=== PATIENT | female | born 2000 | race Caucasian/White ===

== ENCOUNTER 2019-12-30 18:11 | Emergency (ER) | payer OTHER ==
[~2019-12-30] VITALS: Ht 170.2 cm; Wt 83.9 kg
[2019-12-30] MEDS ORDERED: MIDAZOLAM 5 MG/5 ML (VERSED) VIAL IJ ONE (18:15)
[2019-12-30] MEDS ORDERED: fentaNYL INJECTION 100 MCG/2 ML AMP INJ ONE (18:15)
[2019-12-30] MEDS ORDERED: SUCCINYLCHOLINE INJ 100 MG/5 ML SYR INJ ONE (18:15)
[2019-12-30] MEDS ORDERED: ETOMIDATE IV SOLN 20 MG/10 ML VIAL IV ONE (18:15)
[2019-12-30] MEDS ORDERED: NS IV 1000 ML 1,000 ML IV SCH ×3 (18:20→22:13)
[2019-12-30 18:37] LABS: BASOPHILS % (AUTO) 0 % (0-10); EOSINOPHILS # (AUTO) 0.2 10^3/uL (0.0-0.3); EOSINOPHILS % (AUTO) 1 % (0-10); HEMATOCRIT 42 % (35-52); HEMOGLOBIN 14.2 G/DL (11.5-16.0); LYMPHOCYTES % (AUTO) 23 % (12-44); MEAN CORPUSCULAR HEMOGLOBIN 28 PG (25-34); MEAN CORPUSCULAR HGB CONC 34 G/DL (32-36); MEAN CORPUSCULAR VOLUME 83 FL (80-99); MEAN PLATELET VOLUME 11.3 FL (7.4-10.4); MONOCYTES # (AUTO) 0.9 X 10^3 (0.0-1.0); MONOCYTES % (AUTO) 7 % (0-12); NEUTROPHILS # (AUTO) 8.9 X 10^3 (1.8-7.8); NEUTROPHILS % (AUTO) 69 % (42-75); PLATELET COUNT 291 10^3/uL (130-400); RED CELL DISTRIBUTION WIDTH 13.7 % (10.0-14.5); WHITE BLOOD COUNT 12.9 10^3/uL (4.3-11.0)
--- NOTE | 2019-12-30 18:50 | ED Psychosocial ---
General Chief Complaint: Overdose Stated Complaint: TOOK 100 BENADRYL Nursing Triage Note: pt to rm 9 with complaint of overdose. pt states she took approx 100 pills of benadryl in attemp to kill herself. states struggles with anxiety/depression. has not attempted to harm herself before (JOSE JUDD) History of Present Illness Date Seen by Provider: Dec 30, 2019 Time Seen by Provider: 18:15 Initial Comments 19 year old female after taking 100 tablets of diphenhydramine 25 mg. She bought this bottle on 12/27/19 to assist with sleeping. She did not take any until 1729 today, after having a disagreement with her mother over her bank account. She took the pills to harm herself, she denies suicidal thoughts at t his time. No history of suicidal ideation, longstanding depression. Takes Lexapro daily Timing/Duration: just prior to arrival Severity: mild Associated Symptoms: insomnia, suicidal ideation (JOSE JUDD) Allergies and Home Medications Allergies Coded Allergies: No Known Drug Allergies (Unverified , 12/30/19) Patient Home Medication List Home Medication List Reviewed: Yes (JOSE JUDD) Review of Systems Constitutional: no symptoms reported, see HPI : No Musculoskeletal: no symptoms reported, see HPI Psychiatric/Neurological: See HPI, Depressed, Emotional Problems (JOSE JUDD) Past Bisdwvi-Oybkjt-Kxjwfw Hx Past Med/Social Hx: Reviewed Nursing Past Med/Soc Hx (JOSE JUDD) Patient Social History Alcohol Use: Occasionally Uses Recreational Drug Use: Yes Drug of Choice: marijuana Smoking Status: Current Someday Smoker Recent Foreign Travel: No Contact w/Someone Who Travel: No Recent Infectious Disease Expo: No Recent Hopitalizations: No (JOSE JUDD) Immunizations Up To Date Tetanus Booster (TDap): Unknown PED Vaccines UTD: Yes (JOSE JUDD) Seasonal Allergies Seasonal Allergies: No (JOSE JUDD) Past Medical History Surgeries: Yes Tonsillectomy Respiratory: No Cardiac: No Neurological: No Genitourinary: No Gastrointestinal: No Musculoskeletal: No Endocrine: No HEENT: No Cancer: No Psychosocial: Yes Anxiety, Depression Integumentary: No (JOSE JUDD) Physical Exam Vital Signs - First Documented 12/30/19 18:11 Pulse 85 Resp 20 B/P (MAP) 147/89 (108) Pulse Ox 100 O2 Delivery Room Air (MERRY MEHTA) Capillary Refill : Less Than 3 Seconds (JOSE JUDD) Height, Weight, BMI Height: '" Weight: lbs. oz. kg; 28.00 BMI Method: General Appearance: WD/WN, no apparent distress HEENT: PERRL/EOMI, normal ENT inspection, TMs normal, pharynx normal Neck: non-tender, full range of motion, supple, normal inspection Respiratory: chest non-tender, lungs clear, normal breath sounds Cardiovascular: normal peripheral pulses, regular rate, rhythm Gastrointestinal: normal bowel sounds, non tender, soft Extremities: normal range of motion, non-tender, normal inspection, normal capillary refill Neurologic/Psychiatric: no motor/sensory deficits, alert, normal mood/affect, oriented x 3 Appearance/Memory: appropriate appearance, appropriate insight, neat, no memory impairment Behavior/Eye Contact: cooperative, normal speech, avoids eye contact Thoughts/Hallucinations: normal thought pattern, no apparent hallucination, auditory hallucinations Skin: normal color, warm/dry Lymphatic: no adenopathy (JOSE JUDD) Procedures/Interventions Reason for Intubation: diphenhydramine overdose, delirium, GCS 8 Date of ETT Placement: Dec 30, 2019 Time of ETT Placement: 21:20 Intubation Method: orotracheal Tube Size: 7.5 Medications: Etomidate (20), Succinylcholine (40) Positive End Tide CO2: Yes Breath Sounds after Intubation: bilateral-equal Intubation Complications: no complications (O2 sats never went below 100%) Post Intubation Xray: Yes good placement of ET tube Explanation of the risks, benefits and alternatives to intubation and mechanical and ventilation were explained to the patient and her mother. Emergently we made consent. Patient was positioned appropriately preoxygenated and 100% sats. We gave her the etomidate followed by succinylcholine appropriately. Using the Bobo vision and a 7.[address] Judd intubated the patient on first attempt with standby support by Dr. Mehta. Some 0.5 ET tube was placed at 24th at the teeth and she had good equal bilateral breath sounds. She fogged the tube on expiration. The capnography paper changed colors on exhalation. Oxygen sats stayed up. She had good color. No breath sounds were heard over the epigastric region. OG tube was placed by nursing staff on first attempt. Patient tolerated procedure well but then began to cough. She opened her eyes briefly so we gave her 5 of Versed and 100 g of fentanyl for perceived pain and discomfort as well as amnesia related to intubation. Propofol was initiated. Vent settings initially for 50 mL total volume at 18 breaths per minute. PEEP 5 and FiO2 of 21%. (MERRY MEHTA) Progress/Results/Core Measures Results/Orders Lab Results Laboratory Tests Test 12/30/19 18:28 12/30/19 18:49 12/30/19 19:15 12/30/19 21:13 Range/Units White Blood Count 12.9 H 4.3-11.0 10^3/uL Red Blood Count 5.06 4.35-5.85 10^6/uL Hemoglobin 14.2 11.5-16.0 G/DL Hematocrit 42 35-52 % Mean Corpuscular Volume 83 80-99 FL Mean Corpuscular Hemoglobin 28 25-34 PG Mean Corpuscular Hemoglobin Concent 34 32-36 G/DL Red Cell Distribution Width 13.7 10.0-14.5 % Platelet Count 291 130-400 10^3/uL Mean Platelet Volume 11.3 H 7.4-10.4 FL Neutrophils (%) (Auto) 69 42-75 % Lymphocytes (%) (Auto) 23 12-44 % Monocytes (%) (Auto) 7 0-12 % Eosinophils (%) (Auto) 1 0-10 % Basophils (%) (Auto) 0 0-10 % Neutrophils # (Auto) 8.9 H 1.8-7.8 X 10^3 Lymphocytes # (Auto) 3.0 1.0-4.0 X 10^3 Monocytes # (Auto) 0.9 0.0-1.0 X 10^3 Eosinophils # (Auto) 0.2 0.0-0.3 10^3/uL Basophils # (Auto) 0.0 0.0-0.1 10^3/uL Sodium Level 138 135-145 MMOL/L Potassium Level 3.7 3.6-5.0 MMOL/L Chloride Level 104 98-107 MMOL/L Carbon Dioxide Level 22 21-32 MMOL/L Anion Gap 12 5-14 MMOL/L Blood Urea Nitrogen 11 7-18 MG/DL Creatinine 1.00 0.60-1.30 MG/DL Estimat Glomerular Filtration Rate > 60 BUN/Creatinine Ratio 11 Glucose Level 103 70-105 MG/DL Calcium Level 9.2 8.5-10.1 MG/DL Corrected Calcium 8.9 8.5-10.1 MG/DL Total Bilirubin 0.8 0.1-1.0 MG/DL Aspartate Amino Transf (AST/SGOT) 18 5-34 U/L Alanine Aminotransferase (ALT/SGPT) 16 0-55 U/L Alkaline Phosphatase 78 40-136 U/L Total Creatine Kinase 65 29-168 U/L Creatine Kinase MB 0.5 <6.6 NG/ML Total Protein 7.6 6.4-8.2 GM/DL Albumin 4.4 3.2-4.5 GM/DL Lipase 19 8-78 U/L TSH [place] Testing 1.29 0.35-4.94 UIU/ML Salicylates Level < 5.0 L 5.0-20.0 MG/DL Acetaminophen Level < 10 L 10-30 UG/ML Serum Alcohol < 10 <10 MG/DL Urine Color YELLOW Urine Clarity CLEAR Urine pH 7.0 5-9 Urine Specific [place] 1.015 L 1.016-1.022 Urine Protein NEGATIVE NEGATIVE Urine Glucose (UA) NEGATIVE NEGATIVE Urine Ketones NEGATIVE NEGATIVE Urine Nitrite NEGATIVE NEGATIVE Urine Bilirubin NEGATIVE NEGATIVE Urine Urobilinogen 0.2 < = 1.0 MG/DL Urine Leukocyte Esterase TRACE H NEGATIVE Urine RBC (Auto) NEGATIVE NEGATIVE Urine RBC NONE /HPF Urine WBC 2-5 /HPF Urine Squamous Epithelial Cells 2-5 /HPF Urine Crystals NONE /LPF Urine Bacteria FEW H /HPF Urine Casts NONE /LPF Urine Mucus SMALL H /LPF Urine Culture Indicated YES Urine Opiates Screen NEGATIVE NEGATIVE Urine Oxycodone Screen NEGATIVE NEGATIVE Urine Methadone Screen NEGATIVE NEGATIVE Urine Propoxyphene Screen NEGATIVE NEGATIVE Urine Barbiturates Screen NEGATIVE NEGATIVE Ur Tricyclic Antidepressants Screen NEGATIVE NEGATIVE Urine Phencyclidine Screen NEGATIVE NEGATIVE Urine Amphetamines Screen NEGATIVE NEGATIVE Urine Methamphetamines Screen NEGATIVE NEGATIVE Urine Benzodiazepines Screen NEGATIVE NEGATIVE Urine Cocaine Screen NEGATIVE NEGATIVE Urine Cannabinoids Screen NEGATIVE NEGATIVE Prothrombin Time 13.2 12.2-14.7 SEC INR Comment 1.0 0.8-1.4 Activated Partial Thromboplast Time 29 24-35 SEC (MERRY MEHTA) Medications Given in ED Current Medications Medications Dose Ordered Sig/Marilny Route Start Time Stop Time Status Last Admin Dose Admin Lorazepam 2 mg ONCE ONCE IVP 12/30/19 21:00 12/30/19 21:01 DC 12/30/19 20:51 2 MG (MERRY MEHTA) Vital Signs/I&O 12/30/19 18:11 Pulse 85 Resp 20 B/P (MAP) 147/89 (108) Pulse Ox 100 O2 Delivery Room Air (MERRY MEHTA) Blood Pressure Mean: 108 Progress Progress Note : Progress Note 181 Patient seen and evaluated, the risk of a diphenhydramine overdose discussed at length with patient. Will get labs, EKG and IV Fluids. No nausea, vomiting, or seizure activity. Patient alert and oriented. Denies dryness in her mouth or lips. Ice chips given. Spoke to Dr. Mehta about patient, agreed with plan of care at this time. 1829 Spoke to Poison Control, recommended careful monitoring for seizures, hydrate with IV fluids, give high dose benzos and watch for EKG QRS widening. 1914 Labs essentially stable, will give Ativan 1 mg IV. Continue to push IV fluids NS. Mother and father have been here. 1999 Spoke to [facility], Dr. Ackerman and Dr. Mc, agreed to accept patient to ICU. [facility] notified, patient will need transfer. 2014 Repeat EKG, no changes noted. 2044 Patient having altered mental status, no seizures. Tachy 110-120. Emanuel 100% on RA. Slightly agitated, will give Ativan [address] Mehta updated, will plan to intubate. Discussed with patient and her mother. Risks vs benefits reviewed. Agreed with this plan. 2099 RT here. 2118 Patient intubated, started on Propofol drip started, will get Chest x-ray. 2144 Mom at bedside, patient sedated, no seizure activity or voluntary actions. 2199 Drs. Mc and Tyron updated that patient was intubated. 2229 Parents have been in to see patient, she has remained stable. Will repeat EKG. 2314 Continues to be stable on vent. No further changes on EKG. Sedated and tolerating vent, ET/OG tubes. 2334 [facility] here to transport patient to [facility]. Patient became slightly agitated, will give Morphine 5 mg IV. Transferred to EMS cot, no further agitation or opening of eyes. (JOSE JUDD) Progress Note : Time: 21:54 Progress Note 2154: Dr. Mehta assisted Dr. Judd in intubation and subsequent placement of the OG tube. On chest x-ray the OG tube terminates at the GE junction and will be advanced 5 cm. ET tube in satisfactory position. Patient is tolerating this well. Plan to get ABG now. (MERRY MEHTA) Initial ECG Impression Date: Dec 30, 2019 Initial ECG Impression Time: 18:20 Initial ECG Rate: 77 Initial ECG Rhythm: Normal Sinus Initial ECG Intervals: Normal Initial ECG Intervals WY 144, QRSD 86, QT 356, QTC 403. [place] P 28, QRS 23, T 22. Initial ECG Impression: Normal Initial ECG Comparisson: No Previous ECG Available EKG #1: EKG Time: 19:48 Rate: 111 Rhythm: S.Tach Intervals: Normal Intervals WY 152, QRSD 84, QT 344. QTc 468. [place] P 35, QRS 17, T 22. ECG Comparisson: Unchanged ECG Impression: Normal Comment No QRS widening. EKG #2: EKG Time: 22:31 Rate: 108 Rhythm: S.Tach Intervals: Normal Intervals WY 164, QRSD 80, QT 348, QTC 467. [place] P 38, QRS 21, T12 ECG Comparisson: Unchanged ECG Impression: Normal Comment Continues to have no QRS widening. Reviewed with Dr. Mehta. (JOSE JUDD) Diagnostic Imaging Diagonstic Imaging: Xray Plain Films/CT/US/NM/MRI: chest Comments [facility] [place] [place] NAME: [facility] REC#: [id number] PT STATUS: REG ER : 1999 PHYSICIAN: JOSE JUDD ADMIT DATE: 12/30/19/ER Draft Date of Exam:12/30/19 CHEST 1 VIEW, AP/PA ONLY EXAMINATION: Single view of the chest was obtained. INDICATION: Overdose. FINDINGS: Endotracheal tube is 4 cm above the timur at the level of the clavicular heads. The enteric tube extends to the level of the GE junction and could be advanced. The lungs demonstrate no focal infiltrate or consolidation. There is no effusion. There is no pneumothorax. Heart size appears normal. IMPRESSION: 1. Endotracheal tube positioning appears appropriate. 2. Enteric tube extends to the GE junction and could be advanced. 3. No acute cardiopulmonary process evident. Dictated on workstation # [id number] Dict: 12/30/192140 Trans: 12/30/192148 PJJelena [id number] Interpreted by: NEREIDA BUTT MD Electronically signed by: Reviewed: Reviewed by Me (MERRY MEHTA) Departure Impression Primary Impression: Overdose Qualified Codes: T50.902A - Poisoning by unspecified drugs, medicaments and biological substances, intentional self-harm, initial encounter Additional Impression: Suicidal intent Disposition: XFER SHT-TRM HOSP Condition: Critical Admissions Decision to Admit Reason: Admit from ER (General) (JOSE JUDD) Transfer Transfer Reason: Diversion Time Spoke to Accepting Phy: 22:00 Transfer Progress Notes Spoke to Drs. Ackerman and Alexandro. Updated that patient was intubated, per phone. (JOSE JUDD) Departure-Patient Inst. Referrals: NO,LOCAL PHYSICIAN (PCP) Primary Care Physician Patient Instructions: ALCOHOL AND SUBSTANCE ABUSE JOSE JUDD Dec 30, 2019 18:50 MERRY MEHTA Dec 30, 2019 21:54
[2019-12-30 19:00] LABS: ALANINE AMINOTRANSFERASE 16 U/L (0-55); ALBUMIN 4.4 GM/DL (3.2-4.5); ALKALINE PHOSPHATASE 78 U/L (40-136); BILIRUBIN,TOTAL 0.8 MG/DL (0.1-1.0); BUN/CREATININE RATIO 11; CALCIUM 9.2 MG/DL (8.5-10.1); CARBON DIOXIDE 22 MMOL/L (21-32); CHLORIDE 104 MMOL/L (98-107); GFR ESTIMATED > 60; GLUCOSE 103 MG/DL (70-105); POTASSIUM 3.7 MMOL/L (3.6-5.0); SALICYLATE < 5.0 MG/DL (5.0-20.0); SODIUM 138 MMOL/L (135-145); TOTAL PROTEIN 7.6 GM/DL (6.4-8.2)
[2019-12-30 19:05] LABS: BILIRUBIN,URINE NEGATIVE (NEGATIVE); CLARITY,URINE CLEAR; COLOR,URINE YELLOW; GLUCOSE, URINE (UA) NEGATIVE (NEGATIVE); KETONES,URINE NEGATIVE (NEGATIVE); LEUKOCYTE ESTERASE ,URINE TRACE (NEGATIVE); NITRITE,URINE NEGATIVE (NEGATIVE); PROTEIN,URINE NEGATIVE (NEGATIVE)
[2019-12-30 19:09] LABS: ACETAMINOPHEN < 10 UG/ML (10-30)
[2019-12-30 19:20] LABS: AMPHETAMINE SCREEN, URINE NEGATIVE (NEGATIVE); BARBITURATE SCREEN URINE NEGATIVE (NEGATIVE); BENZODIAZEPINES SCREEN URINE NEGATIVE (NEGATIVE); CANNABINOID SCREEN, URINE NEGATIVE (NEGATIVE); COCAINE SCREEN URINE NEGATIVE (NEGATIVE); METHADONE STAT NEGATIVE (NEGATIVE); METHAMPHETAMINE SCREEN URINE S NEGATIVE (NEGATIVE); OPIATE SCREEN URINE NEGATIVE (NEGATIVE); OXYCODONE STAT NEGATIVE (NEGATIVE); PROPOXYPHENE STAT NEGATIVE (NEGATIVE); TRICYCLIC ANTIDEPRESSANTS SCRE NEGATIVE (NEGATIVE)
[2019-12-30 19:21] LABS: CREATINE KINASE MB 0.5 NG/ML (<6.6); TSH (THYROID ANALYZER) 1.29 UIU/ML (0.35-4.94)
[2019-12-30 19:26] LABS: BACTERIA,URINE FEW /HPF
[2019-12-30 19:36] LABS: PROTHROMBIN TIME PATIENT 13.2 SEC (12.2-14.7)
[2019-12-30] MEDS ORDERED: LORazepam INJ 2 MG/ML (ATIVAN) VIAL IVP STA (19:46)
--- NOTE | 2019-12-30 20:32 | NUR ---
poison control updated on lab values/v.s.
[2019-12-30] MEDS ORDERED: NS IV 1000 ML 1,000 ML IV STA (20:39)
[2019-12-30] MEDS ORDERED: PHYSOSTIGMINE (ANTILIRIUM) 2 MG/2 ML AMP IV ONE (21:00)
[2019-12-30] MEDS ORDERED: LORazepam INJ 2 MG/ML (ATIVAN) VIAL IVP ONE (21:00)
--- NOTE | 2019-12-30 21:09 | NUR ---
2115- pt being pre oxygenated with bvm. HR 118, o2 100%, rr 21, bp 136/94 2116- 20 mg etomidate administered 2116- 40mg succs administered 2118- first attempt at intubation, successful, + color change, 24 at the teeth, #7.5 ET tube. Fio2 21%, Peep 5, 450 tital volume, rate 18. 2119- 16Fr OG tube placed 2123- 5mg versed administered 2124- 100mcg fentanyl administered 2128- Propofol drip initiated (30mcg/kg/hr) 2134--Prop at 20mcg/kg/hr
[2019-12-30] MEDS ORDERED: PROPOFOL DRIP (ICU) 100 ML IV ONE ×2 (21:21→23:33)
[2019-12-30] MEDS ORDERED: PROPOFOL DRIP (ICU) 100 ML IV STA (21:31)
--- NOTE | 2019-12-30 21:49 | Diagnostic Imaging Report ---
EXAMINATION: Single view of the chest was obtained. INDICATION: Overdose. FINDINGS: Endotracheal tube is 4 cm above the timur at the level of the clavicular heads. The enteric tube extends to the level of the GE junction and could be advanced. The lungs demonstrate no focal infiltrate or consolidation. There is no effusion. There is no pneumothorax. Heart size appears normal. IMPRESSION: 1. Endotracheal tube positioning appears appropriate. 2. Enteric tube extends to the GE junction and could be advanced. 3. No acute cardiopulmonary process evident. Dictated by: Dictated on workstation # [id number]
[2019-12-30 21:50] LABS: ALANINE AMINOTRANSFERASE 12 U/L (0-55); ALBUMIN 3.7 GM/DL (3.2-4.5); ALKALINE PHOSPHATASE 60 U/L (40-136); BILIRUBIN,TOTAL 0.5 MG/DL (0.1-1.0); BUN/CREATININE RATIO 11; CALCIUM 7.7 MG/DL (8.5-10.1); CARBON DIOXIDE 19 MMOL/L (21-32); CHLORIDE 114 MMOL/L (98-107); CREATININE SERUM 0.81 MG/DL (0.60-1.30); GFR ESTIMATED > 60; GLUCOSE 75 MG/DL (70-105); POTASSIUM 3.8 MMOL/L (3.6-5.0); SODIUM 141 MMOL/L (135-145); TOTAL PROTEIN 6.1 GM/DL (6.4-8.2)
--- NOTE | 2019-12-30 21:55 | NUR ---
REPORT GIVEN TO LILLIE VASQUEZ @ [facility] AT THIS TIME. MOM UPDATED OF [employer] VISITOR POLICIES AND GIVEN CONTACT INFORMATION FOR [facility].
--- NOTE | 2019-12-30 21:55 | NUR ---
OG tube advanced approx 5cm per provider order.
[2019-12-30] MEDS ORDERED: PANTOPRAZOLE 40 MG (PROTONIX) VIAL IV ONE (22:00)
--- NOTE | 2019-12-30 22:05 | NUR ---
2205 Propofol drip increased to 30mcg/kg/hr per provider order.
[2019-12-30 22:17] LABS: ABG BASE EXCESS -6.2 MMOL/L (-2.5-2.5); ABG OXYGEN SATURATION 99 % (94-100); ABG PCO2 32 MMHG (35-45); ABG PH 7.37 (7.37-7.43); ABG PO2 104 MMHG (79-93); ABG TCO2 19.2 MMOL/L (21.0-31.0)
[2019-12-30 22:20] LABS: ALLENS TEST YES-POS; INSPIRED O2 21%; PATIENT TEMP 36.3; VENTILATOR YES
--- NOTE | 2019-12-30 22:25 | NUR ---
RATE ON VENT DECREASED TO [address] URBANO.
--- NOTE | 2019-12-30 22:40 | NUR ---
1800ml urinary output.
--- OUTSIDE RECORDS SUMMARY | 2019-12-30 22:44 | XMS REPORT ---
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 Name Role Phone JOSELO CERRATO Unavailable PROBLEMS Unknown Problems ALLERGIES No Known Allergies ENCOUNTERS Encounter Location Date Diagnosis [facility] [address] [facility] [id number] [place], [place] [id number] Jul, Dental examination Z01.20 IMMUNIZATIONS No Known Immunizations SOCIAL HISTORY Never Assessed REASON FOR VISIT PLAN OF CARE VITAL SIGNS MEDICATIONS No Known Medications RESULTS No Results PROCEDURES Procedure Date Ordered Result Body Site PROPHYLAXIS - ADULT Aug 05, 2017 TOPICAL FLUORIDE VARNISH Aug 05, 2017 Dental Outreach adjust balance Aug 05, 2017 INSTRUCTIONS MEDICATIONS ADMINISTERED No Known Medications
--- OUTSIDE RECORDS SUMMARY | 2019-12-30 22:44 | XMS REPORT | Continuity of Care Document ---
Author Organization Unknown Address Unknown Phone Unavailable Allergies Active Description Code Type Severity Reaction Onset Reported/Identified Relationship to Patient Clinical Status Yes No Known Drug Allergies [id number] Drug Allergy Unknown N/A 12/30/2019 Medications There is no data. Problems There is no data. Procedures There is no data. Results Test Result Range TSH - 01/15/19 16:27 TSH 0.70 mIU/L NRG A1C - 01/15/19 16:27 HEMOGLOBIN A1c 5.3 % of total Hgb <5.7 TEST AUTHORIZATION - 01/15/19 16:27 TEST NAME: HEMOGLOBIN A1c NRG TEST CODE: 496SB NRG CLIENT CONTACT: VERO VARNER NRG REPORT ALWAYS MESSAGE SIGNATURE NRG COMMENT NRG CMP - 02/10/19 15:22 GLUCOSE 77 mg/dL 65-99 UREA NITROGEN (BUN) 15 mg/dL 7-20 CREATININE 0.88 mg/dL 0.50-1.00 eGFR NON-AFR. [place] 95 mL/min/1.73m2 > OR = 60 eGFR 110 mL/min/1.73m2 > OR = 60 BUN/CREATININE RATIO NOT APPLICABLE (calc) 6-22 SODIUM 138 mmol/L 135-146 POTASSIUM 3.9 mmol/L 3.8-5.1 CHLORIDE 103 mmol/L 98-110 CARBON DIOXIDE 27 mmol/L 20-32 CALCIUM 9.6 mg/dL 8.9-10.4 PROTEIN, TOTAL 7.2 g/dL 6.3-8.2 ALBUMIN 4.5 g/dL 3.6-5.1 GLOBULIN 2.7 g/dL (calc) 2.0-3.8 ALBUMIN/GLOBULIN RATIO 1.7 (calc) 1.0-2. 5 BILIRUBIN, TOTAL 1.3 mg/dL 0.2-1.1 ALKALINE PHOSPHATASE 64 U/L 47-176 AST 14 U/L 12-32 ALT 8 U/L 5-32 CULTURE, URINE - 11/18/19 14:06 CULTURE, URINE, ROUTINE NRG Complete blood count (CBC) with automate d white blood cell (WBC) differential - 12/30/19 18:28 Blood leukocytes automated count (number/volume) 12.9 10*3/uL 4.3-11.0 Blood erythrocytes automated count (number/volume) 5.06 10*6/uL 4.35-5.85 Venous blood hemoglobin measurement (mass/volume) 14.2 g/dL 11.5-16.0 Blood hematocrit (volume fraction) 42 % 35-52 Automated erythrocyte mean corpuscular volume 83 [ foz_us] 80-99 Automated erythrocyte mean corpuscular h emoglobin (mass per erythrocyte) 28 pg 25-34 Automated erythrocyte mean corpuscular h emoglobin concentration measurement (mass/volume) 34 g/dL 32-36 Automated erythrocyte distribution width ratio 13. 7 % 10.0- 14.5 Automated blood platelet count (count/volume) 291 10*3/uL 130-400 Automated blood platelet mean volume measurement 11.3 [foz_us] 7.4-10.4 Automated blood neutrophils/100 leukocytes 69 % 42-75 Automated blood lymphocytes/100 leukocytes 23 % 12-44 Blood monocytes/100 leukocytes 7 % 0-12 Automated blood eosinophils/100 leukocytes 1 % 0-10 Automated blood basophils/100 leukocytes 0 % 0-10 Blood neutrophils automated count (number/volume) 8.9 10*3 1.8-7.8 Blood lymphocytes automated count (number/volume) 3.0 10*3 1.0-4.0 Blood monocytes automated count (number/volume) 0. 9 10*3 0.0-1.0 Automated eosinophil count 0.2 10*3/uL 0 .0-0.3 Automated blood basophil count (count/volume) 0.0 10*3/uL 0.0-0.1 Comprehensive metabolic panel - 12/30/19 18:28 Serum or plasma sodium measurement (moles/volume) 138 mmol/L 135-145 Serum or plasma potassium measurement (moles/volume) 3.7 mmol/L 3.6-5.0 Serum or plasma chloride measurement (moles/volume) 104 mmol/L 98-107 Carbon dioxide 22 mmol/L 21-32 Serum or plasma anion gap determination (moles/volume) 12 mmol/L 5-14 Serum or plasma urea nitrogen measurement (mass/volume ) 11 mg/dL 7-18 Serum or plasma creatinine measurement (mass/volume) 1.00 mg/dL 0.60-1.30 Serum or plasma urea nitrogen/creatinine mass ratio 11 NRG Serum or plasma creatinine measurement w ith calculation of estimated glomerular filtration rate > NRG Serum or plasma glucose measurement (mass/volume) 103 mg/dL 70-105 Serum or plasma calcium measurement (mass/volume) 9.2 mg/dL 8.5-10.1 Serum or plasma total bilirubin measurement (mass/volu me) 0.8 mg/dL 0.1-1.0 Serum or plasma alkaline phosphatase rama surement (enzymatic activity/volume) 78 U/L 40-136 Serum or plasma aspartate aminotransfera se measurement (enzymatic activity/volume) 18 U/L 5-34 Serum or plasma alanine aminotransferase measurement (enzymatic activity/volume) 16 U/L 0-55 Serum or plasma protein measurement (mass/volume) 7.6 g/dL 6.4-8.2 Serum or plasma albumin measurement (mass/volume) 4.4 g/dL 3.2-4.5 CALCIUM CORRECTED 8.9 mg/dL 8.5-10.1 Serum or plasma creatine kinase measurem ent (enzymatic activity/volume) - 12/30/19 18:28 Serum or plasma creatine kinase measurem ent (enzymatic activity/volume) 65 U/L 29-168 Serum or plasma creatine kinase MB measu rement (enzymatic activity/volume) - 12/30/19 18:28 Serum or plasma creatine kinase MB measu rement (enzymatic activity/volume) 0.5 ng/mL <6.6 Serum or plasma salicylates measurement (mass/volume) - 12/30/19 18:28 Serum or plasma salicylates measurement (mass/volume) < mg/dL 5.0-20.0 Serum or plasma acetaminophen measuremen t (mass/volume) - 12/30/19 18:28 Serum or plasma acetaminophen measurement (mass/volume ) < ug/mL 10-30 Serum or plasma ethanol measurement (mas s/volume) - 12/30/19 18:28 Serum or plasma ethanol measurement (mass/volume) < mg/dL <10 Lipase - 12/30/19 18:28 Lipase 19 U/L 8-78 Serum or plasma thyrotropin measurement by detection limit <=0.05 miu/l (units/volume) - 12/30/19 18:28 Serum or plasma thyrotropin measurement by detection limit <=0.05 miu/l (units/volume) 1.29 u[iU]/mL 0.35-4.94 Urine drug screening test - 12/30/19 18: 49 Urine phencyclidine detection by screening method NEGATIVE NEGATIVE Urine benzodiazepines detection by screening method NEGATIVE NEGATIVE Urine cocaine detection NEGATIVE NEGATI VE Urine amphetamines detection by screening method N EGATIVE NEGATIVE Urine methamphetamine detection by screening method NEGATIVE NEGATIVE Urine cannabinoids detection by screening method N EGATIVE NEGATIVE Urine opiates detection by screening method NEGATI VE NEGATIVE Urine barbiturates detection NEGATIVE N EGATIVE Screening urine tricyclic antidepressants detection NEGATIVE NEGATIVE Urine methadone detection by screening method NEGA TIVE NEGATIVE Urine oxycodone detection NEGATIVE NEGA TIVE Urine propoxyphene detection NEGATIVE N EGATIVE Complete urinalysis with reflex to cultu re - 12/30/19 18:49 Urine color determination YELLOW NRG Urine clarity determination CLEAR NR G Urine pH measurement by test strip 7.0 5-9 Specific gravity of urine by test strip 1.015 1.016-1.022 Urine protein assay by test strip, semi-quantitative NEGATIVE NEGATIVE Urine glucose detection by automated test strip NE GATIVE NEGATIVE Erythrocytes detection in urine sediment by light micr oscopy NEGATIVE NEGATIVE Urine ketones detection by automated test strip NE GATIVE NEGATIVE Urine nitrite detection by test strip NEGATIVE NEGATIVE Urine total bilirubin detection by test strip NEGA TIVE NEGATIVE Urine urobilinogen measurement by automated test strip (mass/volume) 0.2 mg/dL < = 1.0 Urine leukocyte esterase detection by dipstick TRA CE NEGATIVE Automated urine sediment erythrocyte cou nt by microscopy (number/high power field) NONE NRG Automated urine sediment leukocyte count by microscopy (number/high power field) [HPF] NRG Bacteria detection in urine sediment by light microsco py FEW NRG Squamous epithelial cells detection in u rine sediment by light microscopy 2-5 NRG Crystals detection in urine sediment by light microsco py NONE NRG Casts detection in urine sediment by light microscopy NONE NRG Mucus detection in urine sediment by light microscopy SMALL NRG Complete urinalysis with reflex to culture YES NRG PT panel in platelet poor plasma by coag ulation assay - 12/30/19 19:15 Prothrombin time (PT) in platelet poor plasma by coagu lation assay 13.2 s 12.2-14.7 INR in platelet poor plasma or blood by coagulation as say 1.0 0.8-1.4 Activated partial thromboplastin time (a PTT) in platelet poor plasma bycoagulation assay - 12/30/19 19:15 Activated partial thromboplastin time (a PTT) in platelet poor plasma bycoagulation assay 29 s 24-35 Comprehensive metabolic panel - 12/30/19 21:13 Serum or plasma sodium measurement (moles/volume) 141 mmol/L 135-145 Serum or plasma potassium measurement (moles/volume) 3.8 mmol/L 3.6-5.0 Serum or plasma chloride measurement (moles/volume) 114 mmol/L 98-107 Carbon dioxide 19 mmol/L 21-32 Serum or plasma anion gap determination (moles/volume) 8 mmol/L 5-14 Serum or plasma urea nitrogen measurement (mass/volume ) 9 mg/dL 7-18 Serum or plasma creatinine measurement (mass/volume) 0.81 mg/dL 0.60-1.30 Serum or plasma urea nitrogen/creatinine mass ratio 11 NRG Serum or plasma creatinine measurement w ith calculation of estimated glomerular filtration rate > NRG Serum or plasma glucose measurement (mass/volume) 75 mg/dL 70-105 Serum or plasma calcium measurement (mass/volume) 7.7 mg/dL 8.5-10.1 Serum or plasma total bilirubin measurement (mass/volu me) 0.5 mg/dL 0.1-1.0 Serum or plasma alkaline phosphatase rama surement (enzymatic activity/volume) 60 U/L 40-136 Serum or plasma aspartate aminotransfera se measurement (enzymatic activity/volume) 15 U/L 5-34 Serum or plasma alanine aminotransferase measurement (enzymatic activity/volume) 12 U/L 0-55 Serum or plasma protein measurement (mass/volume) 6.1 g/dL 6.4-8.2 Serum or plasma albumin measurement (mass/volume) 3.7 g/dL 3.2-4.5 CALCIUM CORRECTED 7.9 mg/dL 8.5-10.1 Arterial blood gas measurement - 0 22:09 Blood pCO2 32 mm[Hg] 35-45 Blood pO2 104 mm[Hg] 79-93 Arterial blood bicarbonate measurement (moles/volume) 18 mmol/L 23-27 Arterial blood base excess by calculation -6.2 mmo l/L -2.5-2.5 Arterial blood oxygen saturation measurement 99 % 94-100 * Inhaled oxygen flow rate 21% NRG Arterial blood pH measurement with patient temperature correction 7.37 7.37-7.43 Arterial blood carbon dioxide, total measurement (mole s/volume) 19.2 mmol/L 21.0-31.0 Body site RIGHT RADIAL NRG Assessment of wrist artery patency prior to arterial p uncture YES-POS NRG Setting of ventilation mode YES NR G Measurement of body temperature 36.3 NRG Encounters ACCT No. Visit Date/Time Discharge Status Pt. Type Provider Facility Loc./Unit Complaint [id number] 12/22/2019 17:00:00 12/22/2019 23:59: 59 [id number] 11/18/2019 14:00:00 Document Registration [id number] 02/10/2019 15:00:00 Document Registration [id number] 01/15/2019 16:00:00 Document Registration [id number] 12/30/2019 18:14:[address] Emergency [facility] ER TOOK [facility] BENA[address]YL
[2019-12-30] MEDS ORDERED: morphine INJ 10 MG/ML 1ML (SYR OR VIAL) ONE (23:24)
[2019-12-30] MEDS ORDERED: morphine INJ 10 MG/ML 1ML (SYR OR VIAL) IVP STA (23:34)
[2019-12-30 23:45] VITALS: BP 126/90
--- NOTE | 2019-12-31 01:53 | NUR ---
JUDD FROM [facility] RETURNED IV PUMP AND PROPOFOL THAT WAS NOT USED EN ROUTE FOR TRANSFER. PROPOFOL RETURNED TO [facility].
== END 2019-12-30 23:45 | disposition short-term general hospital (02) ==
LOC: ER 18:14
DX: T45.0X2A Poisoning by antiallergic and antiemetic drugs, intentional self-harm, initial encounter (principal); R45.851 Suicidal ideations; F41.9 Anxiety disorder, unspecified; F32.9 Major depressive disorder, single episode, unspecified; F17.200 Nicotine dependence, unspecified, uncomplicated
CPT/HCPCS: 31500; 36415; 51702; 71045; 80053; 80306; 80320; 80329; 81000; 82550; 82553; 82805; 83690; 84443; 84703; 85025; 85610; 85730; 87088; 93005; 93041; 96361; 96374; 96375; 96376

== ENCOUNTER 2023-05-11 12:26 | Outpatient (CLI) | payer SELFPAY ==
[~2023-05-11] VITALS: Ht 170.2 cm; Wt 70.2 kg
[2023-05-11 12:07] VITALS: BP 125/58
--- NOTE | 2023-05-12 08:11 | Physician Query-Final Dx ---
LORA05/12/23 0811: Clinic Account Progress/Dx Physician Query: Please give diagnosis Please include # weeks gestation Date of Service May 11, 2023 at 12:26 SHERI LOPEZ MD 05/15/23 1457: Clinic Account Progress/Dx DIAGNOSIS: Diagnosis Back pain in 19 weeks gestation LORA,OctMay 12, 2023 08:11 SHERI LOPEZ MD May 15, 2023 14:57
== END 2023-05-11 12:45 ==
LOC: WSo 12:26 → LDRP 12:26 → WSo 12:45
PROVIDERS: ATTEND Family Medicine
DX: O26.899 Other specified pregnancy related conditions, unspecified trimester (principal); M54.9 Dorsalgia, unspecified; Z3A.00 Weeks of gestation of pregnancy not specified
CPT/HCPCS: 99212